=== PATIENT | female | born 1990 | race Caucasian/White ===

== ENCOUNTER 2017-08-30 02:32 | Emergency (ER) | payer OTHER ==
[2017-08-30 03:09] VITALS: TEMP 98.6; BMI 34.3
--- NOTE | 2017-08-30 03:10 | PDOC ---
History of Present Illness - General Chief Complaint: Injury Stated Complaint: LEFT TOE INJURY Time Seen by Provider: 08/30/17 03:09 History Source: Patient - History of Present Illness Initial Comments: 08/30/17 06:25 27 year old female with left great toe pain radiating to left calf/ knee. patient reports left ankle swelling and calf pain. denies injury or trauma. history of left great toe fracture. last OCP use 6 months ago Past History - Past Medical History Allergies/Adverse Reactions: Allergies Allergy/AdvReac Type Severity Reaction Status Date / Time No Known Allergies Allergy Verified 08/30/17 03:05 Home Medications: Ambulatory Orders Ketotifen Fumarate 5 ml OD BID PRN #1 drops 03/30/16 Peg 400/Hypromellose/Glycerin [Artificial Tears Drops] 15 ml OP Q3H PRN #1 drops 03/30/16 - Immunization History Immunization Up to Date: Yes - Suicide/Smoking/Psychosocial Hx Smoking Status: No Smoking History: Never smoked Have you smoked in the past 12 months: No Number of Cigarettes Smoked Daily: 0 Information on smoking cessation initiated: No Hx Alcohol Use: No Drug/Substance Use Hx: No Review of Systems - Review of Systems Able to Perform ROS?: Yes Is the patient limited Irish proficient: No Constitutional: No: Symptoms Reported, See HPI, Chills, Diaphoresis, Fever, Loss of Appetite, Malaise, Night Sweats, Weakness, Weight Stable, Unintentional Wgt. Loss, Unexplained wgt Loss, Other Musculoskeletal: Yes: Other (left ankle/ calf swelling) *Physical Exam - Vital Signs Last Vital Signs Temp Pulse Resp BP Pulse Ox 98.6 F 89 18 113/67 99 08/30/17 03:06 08/30/17 03:06 08/30/17 03:06 08/30/17 03:06 08/30/17 03:06 - Physical Exam General Appearance: Yes: Appropriately Dressed Respiratory/Chest: positive: Lungs Clear, Normal Breath Sounds Extremity: positive: Normal Capillary Refill, Normal Inspection, Normal Range of Motion, Swelling, Calf Tenderness (left ), Other (limited ROM of left great toe) Integumentary: positive: Normal Color, Dry, Warm Neurologic: positive: Fully Oriented, Alert, Normal Mood/Affect Progress Note - Progress Note Progress Note: A: left calf pain r/o DVT p: urine foot xray us: no dvt Medical Decision Making - Medical Decision Making 08/30/17 07:02 patient signed out to Amber Glass. pending xray and US to r/o DVT *DC/Admit/Observation/Transfer Diagnosis at time of Disposition: Pain of left calf, Pedal edema - Discharge Dispostion Disposition: HOME Condition at time of disposition: Good - Referrals Referrals: Kishan Wolfe MD [Staff Physician] - Kirt Barriga MD [Staff Physician] - - Patient Instructions Printed Discharge Instructions: DI for Leg Pain, DI for Peripheral Edema, Unilateral Additional Instructions: Discharge Instructions: -The xray and ultrasound of your leg were normal -Take Motrin for pain at home if needed -Follow RICE instructions -Follow up with your doctor within 1 week -Return to the ER with any worsening or concerning symptoms. - Post Discharge Activity
--- NOTE | 2017-08-30 04:14 | PDOC ---
*Physical Exam - Vital Signs Last Vital Signs Temp Pulse Resp BP Pulse Ox 98.6 F 89 18 113/67 99 08/30/17 03:06 08/30/17 03:06 08/30/17 03:06 08/30/17 03:06 08/30/17 03:06 Medical Decision Making - Medical Decision Making 08/30/17 04:14 agree with care from [facility] José Luis *DC/Admit/Observation/Transfer Diagnosis at time of Disposition: Pain of left calf, Pedal edema - Discharge Dispostion Disposition: HOME Condition at time of disposition: Good - Referrals Referrals: Kishan Wolfe MD [Staff Physician] - Kirt Barriga MD [Staff Physician] - - Patient Instructions Printed Discharge Instructions: DI for Leg Pain, DI for Peripheral Edema, Unilateral Additional Instructions: Discharge Instructions: -The xray and ultrasound of your leg were normal -Take Motrin for pain at home if needed -Follow RICE instructions -Follow up with your doctor within 1 week -Return to the ER with any worsening or concerning symptoms. - Post Discharge Activity
[2017-08-30] MEDS ORDERED: ACETAMINOPHEN 500 MG TABLET (FP) PO ONE (04:37)
[2017-08-30] MEDS ORDERED: ACETAMINOPHEN 325 MG TABLET (FP) ONE (04:50)
[2017-08-30] MEDS ORDERED: IBUPROFEN 400 MG TABLET (FP) PO ONE ×2 (04:54→05:00)
[2017-08-30 07:46] VITALS: BP 100/55; PULSE 82
--- NOTE | 2017-08-30 08:21 | PDOC ---
ED Treatment Course - ADDITIONAL ORDERS Additional order review: Laboratory Results 08/30/17 06:00 Urine HCG, Qual Negative - Medications Given in the ED: ED Medications Discontinued Medications Generic Name Dose Route Start Last Admin Trade Name Zenia PRN Reason Stop Dose Admin Acetaminophen 1,000 mg 08/30/17 04:37 08/30/17 05:10 Tylenol - PO 08/30/17 04:38 Not Given ONCE ONE Ibuprofen 800 mg 08/30/17 04:54 08/30/17 05:10 Motrin - PO 08/30/17 04:55 800 mg ONCE ONE Administration Progress Note - Progress Note Progress Note: I have received report from ANDREW Ordonez regarding this patient. Pt's initial chief complaint: left great toe pain radiating to left calf Pt's work up completed prior to sign out: foot and ankle xray Pt treatment given from prior staff: tylenol and motrin Pt plan to be completed: awaiting ultrasound of left lower extremity Dispo: pending Medical Decision Making - Medical Decision Making A/P: 27 y/o female with left great toe pain radiating to left calf/knee. Awaiting ultrasound to r/o DVT and LE xray. Ultrasound LE IMPRESSION: No evidence of DVT xray left lower extremity IMPRESSION: No acute pathology The patient was given her results. Suggested motrin at home and f/u with her PCP and return to the ER with any worsening or concerning symptoms. The patient verbalizes understanding of all instructions, has no further questions and is awaiting discharge. *DC/Admit/Observation/Transfer Diagnosis at time of Disposition: Pain of left calf, Pedal edema - Discharge Dispostion Disposition: HOME Condition at time of disposition: Good - Referrals Referrals: Kirt Barriga MD [Staff Physician] - Kishan Wolfe MD [Staff Physician] - - Patient Instructions Printed Discharge Instructions: DI for Leg Pain, DI for Peripheral Edema, Unilateral Additional Instructions: Discharge Instructions: -The xray and ultrasound of your leg were normal -Take Motrin for pain at home if needed -Follow RICE instructions -Follow up with your doctor within 1 week -Return to the ER with any worsening or concerning symptoms. - Post Discharge Activity
== END 2017-08-30 09:10 | disposition home or self-care (01) ==
LOC: JER 02:32
DX: M79.662 Pain in left lower leg (principal); R60.9 Edema, unspecified
CPT/HCPCS: 73610-TC-LT-FY; 73630-TC-LT; 84703; 93971-TC; 99282-25

== ENCOUNTER 2017-11-22 02:25 | Emergency (ER) | payer OTHER ==
[2017-11-22 02:34] VITALS: BP 134/90; PULSE 94; BMI 35.0
--- NOTE | 2017-11-22 02:54 | PDOC ---
History of Present Illness - General Chief Complaint: Pain Stated Complaint: MALAISE Time Seen by Provider: 11/22/17 02:37 History Source: Patient Exam Limitations: No Limitations - History of Present Illness Initial Comments: 11/22/17 02:54 27 year old female patient with no PMH p/w nasal congestion, dry cough, tactile fevers, body aches x 3 days. Pt works at a bar. Is not aware of any sick contacts. Pt states that she reports general malaise, and frequent coughing. Complains of sore throat. Denies chest pain. Reports occasional SOB with cough. Past History - Past Medical History Allergies/Adverse Reactions: Allergies Allergy/AdvReac Type Severity Reaction Status Date / Time No Known Allergies Allergy Verified 08/30/17 03:05 Home Medications: Ambulatory Orders Azithromycin 250 mg PO DAILY #6 tablet 11/22/17 Naproxen 500 mg PO BID PRN #20 tablet 11/22/17 COPD: No - Immunization History Immunization Up to Date: Yes - Suicide/Smoking/Psychosocial Hx Smoking Status: No Smoking History: Never smoked Have you smoked in the past 12 months: No Number of Cigarettes Smoked Daily: 0 Hx Alcohol Use: No Drug/Substance Use Hx: No Substance Use Type: None Review of Systems - Review of Systems Able to Perform ROS?: Yes Comments:: 11/22/17 02:55 GENERAL/CONSTITUTIONAL: +fever. No chills. No weakness. HEAD, EYES, EARS, NOSE AND THROAT: No change in vision. No ear pain or discharge. + sore throat. CARDIOVASCULAR: No chest pain. Occasional shortness of breath. RESPIRATORY: + cough. No wheezing, or hemoptysis. GASTROINTESTINAL: No nausea, vomiting, diarrhea or constipation. GENITOURINARY: No dysuria, frequency, or change in urination. MUSCULOSKELETAL: No joint or muscle swelling or pain. No neck or back pain. + body aches SKIN: No rash NEUROLOGIC: No headache, vertigo, loss of consciousness, or change in strength/ sensation. ENDOCRINE: No increased thirst. No abnormal weight change. HEMATOLOGIC/LYMPHATIC: No anemia, easy bleeding, or history of blood clots. ALLERGIC/IMMUNOLOGIC: No hives or skin allergy. *Physical Exam - Vital Signs Last Vital Signs Temp Pulse Resp BP Pulse Ox 94 H 16 134/90 99 11/22/17 02:28 11/22/17 02:28 11/22/17 02:28 11/22/17 02:28 - Physical Exam Comments: 11/22/17 02:56 GENERAL: Awake, alert, and fully oriented, in no acute distress HEAD: No signs of trauma EYES: PERRLA, EOMI, conjunctiva clear ENT: Auricles normal inspection, hearing grossly normal, nares patent, oropharynx clear without exudates. Moist mucosa NECK: Normal ROM, supple LUNGS: Breath sounds equal, clear to auscultation bilaterally. No wheezes, and no crackles HEART: Regular rate and rhythm, normal S1 and S2, no murmurs, rubs or gallops ABDOMEN: Soft, nontender, No guarding, no rebound. No masses EXTREMITIES: Normal range of motion, no edema. No clubbing or cyanosis. No cords, erythema, or tenderness NEUROLOGICAL: Cranial nerves II through XII grossly intact. Normal speech, normal gait SKIN: Warm, Dry, normal turgor, no rashes or lesions noted. Medical Decision Making - Medical Decision Making 11/22/17 02:56 Vital Signs Temp Pulse Resp BP Pulse Ox 94 H 16 134/90 99 11/22/17 02:28 11/22/17 02:28 11/22/17 02:28 11/22/17 02:28 Pt is nontoxic appearing, however, has been coughing throughout my exam. Lungs sound clear throughout. I suspect the patient likely has viral syndrome. However, I advised the patient that if symptoms continue to persist for another 48 to 72 hours, to start taking the azithromycin for presumed bronchitis. Supportive care. PO fluids. Follow up with PMD. Pt verbalizes understanding and agrees with plan. *DC/Admit/Observation/Transfer Diagnosis at time of Disposition: Upper respiratory infection - Discharge Dispostion Disposition: HOME Condition at time of disposition: Stable Decision to Admit order: No - Prescriptions Prescriptions: Azithromycin 250 mg PO DAILY #6 tablet Naproxen 500 mg PO BID PRN #20 tablet PRN Reason: Pain/Fever - Referrals Referrals: Mickey Ramírez [Primary Care Provider] - - Patient Instructions Printed Discharge Instructions: DI for Cough -- Adult Additional Instructions: It may take several days before your symptoms feel better. Please see how you feel in the next 48 hours. By the end of the 48 hours, if you feel that your symptoms did not improve or worsened, please start taking the antibiotics (azithromycin) until completion. Drink plenty of fluids and rest. Follow up with your doctor. - Post Discharge Activity Forms/Work/School Notes: Back to Work
== END 2017-11-22 03:15 | disposition home or self-care (01) ==
LOC: FER 02:25
DX: J06.9 Acute upper respiratory infection, unspecified (principal)
CPT/HCPCS: 99282-25

== ENCOUNTER 2018-10-21 01:02 | Emergency (ER) | payer OTHER | END 2018-10-21 03:34 | disposition home or self-care (01) | LOC: FER 01:02 ==

== ENCOUNTER 2020-11-08 02:20 | Emergency (ER) | payer OTHER ==
[2020-11-08 03:31] VITALS: BMI 35.4
[2020-11-08] MEDS ORDERED: ACETAMINOPHEN 325 MG TABLET (FP) PO ONE (03:49)
[2020-11-08] MEDS ORDERED: LACTATED RINGERS SOLUTION 1000 ML INFUS.BAG IV ONE (03:49)
[2020-11-08 04:10] LABS: EPI CELLS 29 /uL (0-25.1); HYALINE CASTS 0 /uL (0-3.1); PH,URINE 6.5 (5.0-8.0); URINE APPEARANCE CLEAR; URINE BACTERIA 219 /uL (0-1359); URINE BILIRUBIN NEGATIVE (NEGATIVE); URINE COLOR YELLOW; URINE GLUCOSE (UA) NEGATIVE (NEGATIVE); URINE KETONE NEGATIVE (NEGATIVE); URINE LEUK ESTERASE TRACE (NEGATIVE); URINE NITRITE NEGATIVE (NEGATIVE); URINE PROTEIN NEGATIVE (NEGATIVE); URINE RBC 17 /uL (0-23.9); URINE UROBILINOGEN 0.2 mg/dL (0.2-1.0); URINE WBC 5 /uL (0-25.8)
[2020-11-08] MEDS ORDERED: ACETAMINOPHEN 325 MG TABLET (FP) ONE (04:15)
[2020-11-08 04:24] LABS: BASO % 1.1 % (0-2.0); EOS % 3.5 % (0-4.5); HEMATOCRIT 40.5 % (32.4-45.2); HEMOGLOBIN 13.7 GM/dL (10.7-15.3); LYMPH % 53.2 % (8-40); MCH 30.4 pg (25.7-33.7); MCHC 33.8 g/dl (32.0-36.0); MEAN CELL VOLUME 89.9 fl (80-96); MEAN PLT VOLUME 10.1 fl (7.5-11.1); MONO % 7.6 % (3.8-10.2); NEUT % 34.6 % (42.8-82.8); PLATELET COUNT 233 10^3/uL (134-434); RDW 14.1 % (11.6-15.6)
[2020-11-08 04:36] LABS: CHLORIDE 105 mmol/L (98-107); SODIUM 138 mmol/L (136-145)
[2020-11-08 04:38] LABS: ALBUMIN 3.6 g/dl (3.4-5.0); CALCIUM 8.7 mg/dL (8.5-10.1)
[2020-11-08 04:39] LABS: ANION GAP 8 MMOL/L (8-16); BLOOD UREA NITROGEN 8.3 mg/dL (7-18); CO2 24 mmol/L (21-32); GLUCOSE,RANDOM 84 mg/dL (74-106)
[2020-11-08 04:41] LABS: SGPT/ALT 41 U/L (13-61)
[2020-11-08 04:42] LABS: CREATININE 0.7 mg/dL (0.55-1.3); SGOT/AST 24 U/L (15-37)
[2020-11-08 04:43] LABS: BILIRUBIN,TOTAL 0.2 mg/dL (0.2-1); TOT PROT 7.1 g/dl (6.4-8.2)
[2020-11-08 04:45] LABS: ALK PHOS 85 U/L (45-117)
[2020-11-08 06:17] VITALS: BP 139/94; PULSE 76; TEMP 98.7
[2020-11-08] MEDS ORDERED: ONDANSETRON 4 MG/2 ML VIAL IVPUSH ONE (06:37)
[2020-11-08] MEDS ORDERED: ONDANSETRON 4 MG/2 ML VIAL ONE (06:38)
== END 2020-11-08 07:01 | disposition home or self-care (01) ==
LOC: JER 02:20
PROC: 3E033GC Introduction of Other Therapeutic Substance into Peripheral Vein, Percutaneous Approach (ICD-10-PCS; principal; 2020-11-08)
DX: J02.9 Acute pharyngitis, unspecified (principal); R50.9 Fever, unspecified
CPT/HCPCS: 36415; 70491-TC; 71046-TC-FY; 74176-TC; 80053; 81003; 83605; 84443; 84484; 84703; 85025; 87040; 87086; 93005; 93010; 99285-25

== ENCOUNTER 2022-05-23 07:18 | Emergency (ER) | payer OTHER ==
[2022-05-23 07:41] VITALS: BMI 37.1
[2022-05-23] MEDS ORDERED: KETOROLAC TROMETHAMINE 60 MG/2 ML VIAL IM ONE (08:50)
[2022-05-23] MEDS ORDERED: KETOROLAC TROMETHAMINE 60 MG/2 ML VIAL ONE (09:33)
[2022-05-23 10:54] VITALS: BP 112/79; PULSE 72; RESP 16; TEMP 98.1
== END 2022-05-23 11:17 | disposition home or self-care (01) ==
LOC: JER 07:18
PROC: 3E023GC Introduction of Other Therapeutic Substance into Muscle, Percutaneous Approach (ICD-10-PCS; principal; 2022-05-23)
DX: J02.0 Streptococcal pharyngitis (principal)
CPT/HCPCS: 36415; 86308; 99284-25

== ENCOUNTER 2023-10-28 08:37 | Emergency (ER) | payer SELFPAY ==
[2023-10-28 08:55] VITALS: TEMP 97.9; BMI 29.0
[2023-10-28] MEDS: ALBUTEROL SO4 2.5/IPRATROPIUM 0.5 INH SOL 3 ML VIAL.NEB. NEB SCH (09:47)
[2023-10-28 10:09] LABS: BASO % 0.8 % (0-2.0); EOS % 4.9 % (0-4.5); HEMOGLOBIN 13.1 GM/dL (10.7-15.3); LYMPH % 34.9 % (8-40); MCH 30.5 pg (25.7-33.7); MCHC 33.6 g/dl (32.0-36.0); MEAN CELL VOLUME 90.6 fl (80-96); MEAN PLT VOLUME 11.2 fl (7.5-11.1); MONO % 5.2 % (3.8-10.2); NEUT % 54.2 % (42.8-82.8); PLATELET COUNT 182 10^3/uL (134-434); RDW 15.1 % (11.6-15.6); WHITE BLOOD COUNT 8.4 K/mm3 (4.0-10.0)
[2023-10-28 10:10] LABS: HCG,QUALITATIVE URINE Negative
[2023-10-28 10:17] LABS: EPI CELLS >36 /uL (0-25.1); HYALINE CASTS 0 /uL (0-3.1); INR 0.95 (0.83-1.09); PH,URINE 6.5 (5.0-8.0); PROTHROMBIN TIME (PATIENT) 10.9 SEC (9.7-13.0); URINE APPEARANCE CLEAR; URINE BACTERIA 323 /uL (0-1359); URINE BILIRUBIN NEGATIVE (NEGATIVE); URINE COLOR YELLOW; URINE GLUCOSE (UA) NEGATIVE (NEGATIVE); URINE KETONE NEGATIVE (NEGATIVE); URINE LEUK ESTERASE TRACE (NEGATIVE); URINE NITRITE NEGATIVE (NEGATIVE); URINE PROTEIN NEGATIVE (NEGATIVE); URINE RBC 12 /uL (0-23.9); URINE UROBILINOGEN 0.2 mg/dL (0.2-1.0); URINE WBC 24 /uL (0-25.8)
[2023-10-28] MEDS ORDERED: DEXAMETHASONE SOD PHOSPHATE 10 MG/1 ML VIAL ONE (10:18)
[2023-10-28 10:19] LABS: ACTIVATED PTT 29.6 SECONDS (25.2-36.5)
[2023-10-28] MEDS: DEXAMETHASONE SOD PHOSPHATE 10 MG/1 ML VIAL IVPUSH ONE (10:23)
[2023-10-28 10:32] LABS: POTASSIUM 3.6 mmol/L (3.5-5.1)
[2023-10-28 10:34] LABS: ALBUMIN 3.5 g/dl (3.4-5.0); CALCIUM 8.8 mg/dL (8.5-10.1)
[2023-10-28 10:36] LABS: BLOOD UREA NITROGEN 8.5 mg/dL (7-18)
[2023-10-28 10:37] LABS: CREATININE 0.9 mg/dL (0.55-1.3)
[2023-10-28 10:39] LABS: BILIRUBIN,TOTAL 0.3 mg/dL (0.2-1); TOT PROT 6.9 g/dl (6.4-8.2)
[2023-10-28] MEDS ORDERED: FLUCONAZOLE 150 MG TABLET PO ONE (11:13)
[2023-10-28] MEDS: FLUCONAZOLE 150 MG TABLET PO ONE (11:21)
[2023-10-28 11:47] VITALS: BP 136/81; PULSE 89; RESP 18
[2023-10-28 13:23] LABS: SYPHILIS W/ RPR CONF NON-REACTIVE (NONREACTIVE)
[2023-10-28 13:52] LABS: HIV INTERPRETATION NEGATIVE (NEGATIVE)
== END 2023-10-28 12:00 | disposition home or self-care (01) ==
LOC: JER 08:37 → JERFT 08:37
PROC: 3E033GC Introduction of Other Therapeutic Substance into Peripheral Vein, Percutaneous Approach (ICD-10-PCS; principal; 2023-10-28)
PROC: 3E02329 Introduction of Other Anti-infective into Muscle, Percutaneous Approach (ICD-10-PCS; 2023-10-28)
PROC: 3E0F7GC Introduction of Other Therapeutic Substance into Respiratory Tract, Via Natural or Artificial Opening (ICD-10-PCS; 2023-10-28)
DX: J02.9 Acute pharyngitis, unspecified (principal); R06.2 Wheezing; N89.8 Other specified noninflammatory disorders of vagina; Z03.821 Encounter for observation for suspected ingested foreign body ruled out; Z20.822 Contact with and (suspected) exposure to COVID-19
CPT/HCPCS: 0241U-QW; 36415; 71046-TC-FY; 80053; 81003; 82272; 83735; 84703; 85025; 85610; 85730; 86780; 87086; 87389; 87491; 87591; 87661; 93005; 93010; 99285-25; J1100